=== PATIENT | male | born 1955 | race Caucasian/White ===

== ENCOUNTER 2020-11-27 22:58 | Emergency (ER) | payer OTHER ==
[2020-11-27 23:15] VITALS: BMI 28.0
[2020-11-28] MEDS ORDERED: METOCLOPRAMIDE HCL INJECTION 10 MG/2 ML VIAL IVPUSH ONE (00:02)
[2020-11-28] MEDS ORDERED: SODIUM CHLORIDE 1,000 ML IV STA (00:02)
[2020-11-28] MEDS ORDERED: ACETAMINOPHEN 1000 MG/100 ML VIAL (NON FORMULARY) IVPB ONE (00:02)
[2020-11-28] MEDS ORDERED: METOCLOPRAMIDE HCL INJECTION 10 MG/2 ML VIAL ONE (00:05)
[2020-11-28] MEDS ORDERED: ACETAMINOPHEN INJECTION 100 ML IVPB ONE (00:05)
[2020-11-28 00:30] LABS: BASO % 0.6 % (0-2.0); EOS % 0.1 % (0-4.5); HEMATOCRIT 42.4 % (35.4-49); HEMOGLOBIN 14.8 GM/dL (11.7-16.9); LYMPH % 20.5 % (8-40); MCH 33.3 pg (25.7-33.7); MEAN CELL VOLUME 95.1 fl (80-96); MEAN PLT VOLUME 9.5 fl (7.5-11.1); MONO % 8.1 % (3.8-10.2); NEUT % 70.7 % (42.8-82.8); PLATELET COUNT 140 K/MM3 (134-434); RBC 4.46 M/mm3 (4.00-5.60); RDW 12.9 % (11.9-15.9); WHITE BLOOD COUNT 3.6 K/mm3 (4.0-10.0)
[2020-11-28 00:49] LABS: INR 1.48 (0.83-1.09); PROTHROMBIN TIME (PATIENT) 17.7 SEC (9.7-13.0)
[2020-11-28 00:51] LABS: ACTIVATED PTT 41.4 SECONDS (25.2-36.5)
[2020-11-28 00:58] LABS: CHLORIDE 96 mmol/L (98-107); POTASSIUM 4.4 mmol/L (3.5-5.1); SODIUM 131 mmol/L (136-145)
[2020-11-28 01:00] LABS: CALCIUM 7.8 mg/dL (8.5-10.1)
[2020-11-28 01:01] LABS: ALBUMIN 3.8 g/dl (3.4-5.0); ANION GAP 9 MMOL/L (8-16); BLOOD UREA NITROGEN 10.3 mg/dL (7-18); CO2 26 mmol/L (21-32); GLUCOSE,RANDOM 105 mg/dL (74-106)
[2020-11-28 01:04] LABS: CREATININE 0.9 mg/dL (0.55-1.3); SGOT/AST 32 U/L (15-37); SGPT/ALT 43 U/L (13-61)
[2020-11-28 01:06] LABS: BILIRUBIN,TOTAL 0.5 mg/dL (0.2-1); TOT PROT 7.2 g/dl (6.4-8.2)
[2020-11-28 01:07] LABS: ALK PHOS 66 U/L (45-117)
[2020-11-28] MEDS ORDERED: DEXAMETHASONE SOD PHOSPHATE 10 MG/1 ML VIAL IVPUSH ONE (02:19)
[2020-11-28] MEDS ORDERED: IBUPROFEN 400 MG TABLET (FP) PO ONE (02:19)
[2020-11-28] MEDS ORDERED: MAGNESIUM SULF 50% (8.12 MEQ/2 ML-1 GM VIAL) IVPB ONE (02:19)
[2020-11-28] MEDS ORDERED: SODIUM CHLORIDE 0.9% 500 ML INFUS.BAG IV ONE (02:19)
[2020-11-28] MEDS ORDERED: IBUPROFEN 600 MG TABLET (FP) PO ONE (02:22)
[2020-11-28] MEDS ORDERED: DEXAMETHASONE SOD PHOSPHATE 4 MG/1 ML VIAL ONE (02:22)
[2020-11-28] MEDS ORDERED: MAGNESIUM SULFATE IN WATER 2 GM/50 ML IVPB IVPB ONE (02:22)
[2020-11-28] MEDS ORDERED: LACTATED RINGERS SOLUTION 1000 ML INFUS.BAG IV ONE (02:27)
[2020-11-28 03:37] VITALS: BP 120/77; PULSE 67; TEMP 99
== END 2020-11-28 03:38 | disposition home or self-care (01) ==
LOC: JER 22:58
PROC: 3E0333Z Introduction of Anti-inflammatory into Peripheral Vein, Percutaneous Approach (ICD-10-PCS; principal; 2020-11-27)
PROC: 3E033GC Introduction of Other Therapeutic Substance into Peripheral Vein, Percutaneous Approach (ICD-10-PCS; 2020-11-27)
PROC: 3E033GC Introduction of Other Therapeutic Substance into Peripheral Vein, Percutaneous Approach (ICD-10-PCS; 2020-11-27)
PROC: 3E033GC Introduction of Other Therapeutic Substance into Peripheral Vein, Percutaneous Approach (ICD-10-PCS; 2020-11-27)
PROC: 3E0337Z Introduction of Electrolytic and Water Balance Substance into Peripheral Vein, Percutaneous Approach (ICD-10-PCS; 2020-11-27)
DX: U07.1 COVID-19 (principal); R11.2 Nausea with vomiting, unspecified; R51.9 Headache, unspecified
CPT/HCPCS: 36415; 70450-TC; 71045-TC-FY; 80053; 82550; 84484; 85025; 85610; 85730; 93005; 93010; 99285-25; C9803; J0131; J1100; U0003

== ENCOUNTER 2020-11-30 08:43 | Inpatient (IN) | payer OTHER ==
[2020-11-30 08:52] VITALS: BMI 24.3
[2020-11-30] MEDS ORDERED: ACETAMINOPHEN 325 MG TABLET (FP) PO ONE (09:00)
[2020-11-30] MEDS ORDERED: ACETAMINOPHEN 325 MG TABLET (FP) ONE ×2 (09:00→22:29)
[2020-11-30 10:49] LABS: BASO % 0.4 % (0-2.0); HEMATOCRIT 45.1 % (35.4-49); HEMOGLOBIN 15.7 GM/dL (11.7-16.9); LYMPH % 12.4 % (8-40); MCH 33.2 pg (25.7-33.7); MCHC 34.8 g/dl (32.0-35.9); MEAN CELL VOLUME 95.3 fl (80-96); MEAN PLT VOLUME 9.4 fl (7.5-11.1); MONO % 4.9 % (3.8-10.2); NEUT % 82.3 % (42.8-82.8); PLATELET COUNT 185 K/MM3 (134-434); RBC 4.73 M/mm3 (4.00-5.60); RDW 12.9 % (11.9-15.9); WHITE BLOOD COUNT 4.7 K/mm3 (4.0-10.0)
[2020-11-30] MEDS ORDERED: SODIUM CHLORIDE 1,000 ML IV STA (10:49)
[2020-11-30 11:11] LABS: CHLORIDE 94 mmol/L (98-107); POTASSIUM 4.9 mmol/L (3.5-5.1); SODIUM 128 mmol/L (136-145)
[2020-11-30 11:12] LABS: CALCIUM 8.2 mg/dL (8.5-10.1)
[2020-11-30 11:13] LABS: ALBUMIN 3.4 g/dl (3.4-5.0); ANION GAP 6 MMOL/L (8-16); BLOOD UREA NITROGEN 10.9 mg/dL (7-18); CO2 27 mmol/L (21-32); GLUCOSE,RANDOM 98 mg/dL (74-106)
[2020-11-30 11:16] LABS: SGOT/AST 45 U/L (15-37); SGPT/ALT 50 U/L (13-61)
[2020-11-30 11:17] LABS: BILIRUBIN,TOTAL 0.4 mg/dL (0.2-1)
[2020-11-30 11:18] LABS: TOT PROT 7.2 g/dl (6.4-8.2)
[2020-11-30 11:19] LABS: ALK PHOS 71 U/L (45-117)
[2020-11-30] MEDS ORDERED: SODIUM CHLORIDE 0.9% 500 ML INFUS.BAG IV ONE (13:07)
[2020-11-30 14:09] LABS: EPI CELLS 2 /uL (0-25.1); HYALINE CASTS 0 /uL (0-3.1); PH,URINE 6.5 (5.0-8.0); URINE APPEARANCE CLEAR; URINE BACTERIA 21 /uL (0-1359); URINE BILIRUBIN NEGATIVE (NEGATIVE); URINE COLOR YELLOW; URINE GLUCOSE (UA) NEGATIVE (NEGATIVE); URINE KETONE NEGATIVE (NEGATIVE); URINE LEUK ESTERASE NEGATIVE (NEGATIVE); URINE NITRITE NEGATIVE (NEGATIVE); URINE PROTEIN 1+ (NEGATIVE); URINE RBC 2 /uL (0-23.9); URINE UROBILINOGEN 0.2 mg/dL (0.2-1.0); URINE WBC 3 /uL (0-25.8)
[2020-11-30 14:15] LABS: INR 1.39 (0.83-1.09); PROTHROMBIN TIME (PATIENT) 16.9 SEC (9.7-13.0)
[2020-11-30 14:17] LABS: ACTIVATED PTT 37.3 SECONDS (25.2-36.5)
[2020-11-30 14:25] LABS: VENOUS BASE EXCESS -1.8 mmol/L (-2-2); VENOUS O2 SATURATION 35.8 % (70-80); VENOUS PCO2 43.7 mmHg (38-52); VENOUS PH 7.355 (7.310-7.410)
[2020-11-30 14:27] LABS: BILIRUBIN,DIRECT 0.2 mg/dL (0.0-0.2)
[2020-11-30 14:32] LABS: LDH 399 U/L (87-246)
[2020-11-30] MEDS ORDERED: SODIUM CHLORIDE 1,000 ML IV SCH (16:45)
[2020-11-30] MEDS ORDERED: ENOXAPARIN NA (PORCINE) 40 MG/0.4 ML DISP.SYRIN SQ SCH (17:00)
[2020-11-30] MEDS ORDERED: ACETAMINOPHEN 1000 MG/100 ML VIAL (NON FORMULARY) IVPB PRN (17:36)
[2020-11-30] MEDS ORDERED: DEXAMETHASONE SOD PHOSPHATE 4 MG/1 ML VIAL ONE (18:12)
[2020-11-30] MEDS ORDERED: ZINC SULFATE 220 MG CAPSULE (FP) ONE (18:12)
[2020-11-30 18:17] LABS: SODIUM 132 mmol/L (136-145)
[2020-11-30] MEDS: ZINC SULFATE 220 MG CAPSULE (FP) PO SCH (18:24)
[2020-11-30] MEDS: DEXAMETHASONE SOD PHOSPHATE 4 MG/1 ML VIAL IVPUSH SCH (18:24)
[2020-11-30] MEDS: CHOLECALCIFEROL (VIT D3) 400 UNIT (10 MCG) TABLET PO SCH (18:24)
[2020-11-30] MEDS ORDERED: APIXABAN 5 MG TABLET ONE (22:19)
[2020-11-30] MEDS ORDERED: ASCORBIC ACID 500 MG TABLET (FP) ONE (22:19)
[2020-11-30] MEDS: APIXABAN 5 MG TABLET PO SCH (22:24)
[2020-11-30] MEDS: ASCORBIC ACID 500 MG TABLET (FP) PO SCH (22:24)
[2020-11-30] MEDS ORDERED: ACETAMINOPHEN INJECTION 100 ML IVPB ONE (22:41)
[2020-12-01] MEDS ORDERED: DEXAMETHASONE SOD PHOSPHATE 4 MG/1 ML VIAL ONE (02:21)
[2020-12-01] MEDS: DEXAMETHASONE SOD PHOSPHATE 4 MG/1 ML VIAL IVPUSH SCH ×3 (02:30→17:37)
[2020-12-01 07:10] LABS: HEMATOCRIT 46.3 % (35.4-49); MCH 33.3 pg (25.7-33.7); MCHC 34.6 g/dl (32.0-35.9); MEAN CELL VOLUME 96.5 fl (80-96); MEAN PLT VOLUME 9.2 fl (7.5-11.1); PLATELET COUNT 192 K/MM3 (134-434); RDW 12.9 % (11.9-15.9); WHITE BLOOD COUNT 3.7 K/mm3 (4.0-10.0)
[2020-12-01 07:19] LABS: POTASSIUM 4.5 mmol/L (3.5-5.1)
[2020-12-01 07:27] LABS: BLOOD UREA NITROGEN 13.9 mg/dL (7-18); CALCIUM 7.7 mg/dL (8.5-10.1); MAGNESIUM 2.4 mg/dL (1.8-2.4)
[2020-12-01 07:30] LABS: CREATININE 0.9 mg/dL (0.55-1.3)
[2020-12-01 07:31] LABS: BILIRUBIN,TOTAL 0.5 mg/dL (0.2-1); TOT PROT 6.7 g/dl (6.4-8.2)
[2020-12-01] MEDS ORDERED: ASCORBIC ACID 500 MG TABLET (FP) ONE (09:03)
[2020-12-01] MEDS ORDERED: DEXAMETHASONE SOD PHOSPHATE 10 MG/1 ML VIAL ONE (09:04)
[2020-12-01] MEDS ORDERED: ZINC SULFATE 220 MG CAPSULE (FP) ONE (09:04)
[2020-12-01] MEDS ORDERED: APIXABAN 5 MG TABLET ONE (09:04)
[2020-12-01] MEDS: ZINC SULFATE 220 MG CAPSULE (FP) PO SCH (10:20)
[2020-12-01] MEDS: APIXABAN 5 MG TABLET PO SCH ×2 (10:20→21:23)
[2020-12-01] MEDS: ASCORBIC ACID 500 MG TABLET (FP) PO SCH ×2 (10:21→21:23)
[2020-12-01] MEDS: CHOLECALCIFEROL (VIT D3) 400 UNIT (10 MCG) TABLET PO SCH (10:21)
[2020-12-01] MEDS ORDERED: FLU VACCINE (FLULAVAL) PF 60 MCG/0.5 ML SYRINGE 2020-2021 IM ONE (16:27)
[2020-12-02] MEDS: guaiFENesin 200 MG/10 ML 10 ML UNIT-DOSE CUPS PO PRN ×2 (00:58→10:20)
[2020-12-02] MEDS: DEXAMETHASONE SOD PHOSPHATE 4 MG/1 ML VIAL IVPUSH SCH (00:59)
[2020-12-02] MEDS: MELATONIN 5 MG TABLETS PO PRN (02:16)
[2020-12-02 09:04] LABS: HEMATOCRIT 41.7 % (35.4-49); HEMOGLOBIN 14.7 GM/dL (11.7-16.9); MCH 33.5 pg (25.7-33.7); MCHC 35.3 g/dl (32.0-35.9); MEAN CELL VOLUME 94.9 fl (80-96); MEAN PLT VOLUME 8.6 fl (7.5-11.1); PLATELET COUNT 272 K/MM3 (134-434); RDW 13.1 % (11.9-15.9); WHITE BLOOD COUNT 10.7 K/mm3 (4.0-10.0)
[2020-12-02 09:29] LABS: POTASSIUM 4.4 mmol/L (3.5-5.1)
[2020-12-02 10:00] LABS: BLOOD UREA NITROGEN 19.6 mg/dL (7-18)
[2020-12-02] MEDS ORDERED: DEXAMETHASONE 4 MG TABLET (FP) PO SCH (10:00)
[2020-12-02 10:01] LABS: CALCIUM 8.1 mg/dL (8.5-10.1)
[2020-12-02 10:02] LABS: CREATININE 0.9 mg/dL (0.55-1.3)
[2020-12-02] MEDS: APIXABAN 5 MG TABLET PO SCH ×2 (10:20→22:03)
[2020-12-02] MEDS: ZINC SULFATE 220 MG CAPSULE (FP) PO SCH (10:20)
[2020-12-02] MEDS: ASCORBIC ACID 500 MG TABLET (FP) PO SCH ×2 (10:20→22:03)
[2020-12-02] MEDS: CHOLECALCIFEROL (VIT D3) 400 UNIT (10 MCG) TABLET PO SCH (10:21)
[2020-12-03 00:48] LABS: ARTERIAL BLD GAS O2 SATURATION 99.8 mmHg (95-98); ARTERIAL BLOOD GAS BASE EXCESS -0.6 mmol/L (-2-2); ARTERIAL BLOOD GAS PO2 395.4 mmHg (80-100); ARTERIAL BLOOD GAS pH 7.471 (7.350-7.450)
[2020-12-03 00:50] LABS: ALLENS TEST POSITIVE
[2020-12-03 01:23] LABS: INR 1.28 (0.83-1.09); PROTHROMBIN TIME (PATIENT) 15.6 SEC (9.7-13.0)
[2020-12-03 01:25] LABS: ACTIVATED PTT 30.7 SECONDS (25.2-36.5)
[2020-12-03 01:31] LABS: CHLORIDE 103 mmol/L (98-107); POTASSIUM 4.6 mmol/L (3.5-5.1); SODIUM 135 mmol/L (136-145)
[2020-12-03 01:33] LABS: ANION GAP 9 MMOL/L (8-16); BLOOD UREA NITROGEN 20.3 mg/dL (7-18); CALCIUM 7.5 mg/dL (8.5-10.1); CO2 23 mmol/L (21-32); GLUCOSE,RANDOM 145 mg/dL (74-106)
[2020-12-03 01:36] LABS: CREATININE 0.8 mg/dL (0.55-1.3)
[2020-12-03] MEDS: DEXAMETHASONE 4 MG TABLET (FP) PO SCH (09:35)
[2020-12-03] MEDS: ASCORBIC ACID 500 MG TABLET (FP) PO SCH (09:36)
[2020-12-03] MEDS: APIXABAN 5 MG TABLET PO SCH ×2 (09:36→23:59)
[2020-12-03] MEDS: guaiFENesin 200 MG/10 ML 10 ML UNIT-DOSE CUPS PO PRN (09:36)
[2020-12-03] MEDS: ZINC SULFATE 220 MG CAPSULE (FP) PO SCH (09:36)
[2020-12-03] MEDS: CHOLECALCIFEROL (VIT D3) 400 UNIT (10 MCG) TABLET PO SCH (09:38)
[2020-12-03 10:05] LABS: BASO % 0.2 % (0-2.0); HEMATOCRIT 41.3 % (35.4-49); HEMOGLOBIN 14.4 GM/dL (11.7-16.9); LYMPH % 12.1 % (8-40); MCH 33.3 pg (25.7-33.7); MCHC 34.8 g/dl (32.0-35.9); MEAN CELL VOLUME 95.6 fl (80-96); MEAN PLT VOLUME 8.7 fl (7.5-11.1); MONO % 8.3 % (3.8-10.2); NEUT % 79.4 % (42.8-82.8); PLATELET COUNT 300 K/MM3 (134-434); RBC 4.31 M/mm3 (4.00-5.60); RDW 12.9 % (11.9-15.9); WHITE BLOOD COUNT 9.3 K/mm3 (4.0-10.0)
[2020-12-03 10:29] LABS: CHLORIDE 102 mmol/L (98-107); POTASSIUM 4.6 mmol/L (3.5-5.1); SODIUM 136 mmol/L (136-145)
[2020-12-03 10:38] LABS: CALCIUM 7.8 mg/dL (8.5-10.1)
[2020-12-03 10:39] LABS: ALBUMIN 2.9 g/dl (3.4-5.0); ANION GAP 12 MMOL/L (8-16); CO2 22 mmol/L (21-32); GLUCOSE,RANDOM 123 mg/dL (74-106)
[2020-12-03 10:42] LABS: CREATININE 0.9 mg/dL (0.55-1.3); SGOT/AST 107 U/L (15-37); SGPT/ALT 158 U/L (13-61)
[2020-12-03 10:44] LABS: TOT PROT 6.6 g/dl (6.4-8.2)
[2020-12-03 10:45] LABS: ALK PHOS 76 U/L (45-117)
[2020-12-03 10:51] LABS: BILIRUBIN,TOTAL 1.3 mg/dL (0.2-1)
[2020-12-03 12:21] LABS: ERYTHROCYTE SEDIMENTATION RATE 23 mm/hr (0-20)
[2020-12-03] MEDS ORDERED: REMDESIVIR 200 MG in SODIUM CHLORIDE 210 ML IVPB ONE (17:00)
[2020-12-04] MEDS: MELATONIN 5 MG TABLETS PO PRN
[2020-12-04] MEDS ORDERED: PT OWN MED DRAWER 7, Y5N ONE (09:10)
[2020-12-04] MEDS: APIXABAN 5 MG TABLET PO SCH ×2 (09:35→21:12)
[2020-12-04] MEDS: CHOLECALCIFEROL (VIT D3) 400 UNIT (10 MCG) TABLET PO SCH (09:35)
[2020-12-04] MEDS: ZINC SULFATE 220 MG CAPSULE (FP) PO SCH (09:35)
[2020-12-04] MEDS: guaiFENesin 200 MG/10 ML 10 ML UNIT-DOSE CUPS PO PRN ×2 (09:35→21:16)
[2020-12-04] MEDS: DEXAMETHASONE 4 MG TABLET (FP) PO SCH (09:35)
[2020-12-04] MEDS: FAMOTIDINE 20 MG TABLET PO SCH ×3 (09:36→21:12)
[2020-12-04] MEDS: ASCORBIC ACID 500 MG TABLET (FP) PO SCH ×3 (09:36→21:12)
[2020-12-04] MEDS ORDERED: CODEINE SO4 30 MG TABLET PO PRN (09:38)
[2020-12-04 09:58] LABS: BASO % 0.1 % (0-2.0); HEMATOCRIT 41.5 % (35.4-49); HEMOGLOBIN 14.5 GM/dL (11.7-16.9); LYMPH % 16.2 % (8-40); MCHC 34.8 g/dl (32.0-35.9); MEAN CELL VOLUME 94.7 fl (80-96); MEAN PLT VOLUME 8.5 fl (7.5-11.1); MONO % 10.5 % (3.8-10.2); NEUT % 73.2 % (42.8-82.8); PLATELET COUNT 341 K/MM3 (134-434); RBC 4.38 M/mm3 (4.00-5.60); WHITE BLOOD COUNT 9.1 K/mm3 (4.0-10.0)
[2020-12-04 10:19] LABS: POTASSIUM 4.8 mmol/L (3.5-5.1)
[2020-12-04 10:24] LABS: ALBUMIN 2.8 g/dl (3.4-5.0)
[2020-12-04 10:26] LABS: BLOOD UREA NITROGEN 18.7 mg/dL (7-18); MAGNESIUM 2.4 mg/dL (1.8-2.4)
[2020-12-04 10:27] LABS: CREATININE 0.7 mg/dL (0.55-1.3)
[2020-12-04 10:28] LABS: PHOSPHOROUS 3.3 mg/dL (2.5-4.9)
[2020-12-04 10:29] LABS: BILIRUBIN,TOTAL 0.5 mg/dL (0.2-1); TOT PROT 6.4 g/dl (6.4-8.2)
[2020-12-04 10:49] LABS: ERYTHROCYTE SEDIMENTATION RATE 23 mm/hr (0-20)
[2020-12-04] MEDS: REMDESIVIR 100 MG in SODIUM CHLORIDE 230 ML IVPB SCH (18:08)
[2020-12-05 09:09] LABS: BASO % 0.2 % (0-2.0); EOS % 0.2 % (0-4.5); HEMATOCRIT 42.3 % (35.4-49); HEMOGLOBIN 15.1 GM/dL (11.7-16.9); LYMPH % 18.7 % (8-40); MCH 34.2 pg (25.7-33.7); MCHC 35.8 g/dl (32.0-35.9); MEAN CELL VOLUME 95.6 fl (80-96); MEAN PLT VOLUME 8.3 fl (7.5-11.1); MONO % 9.1 % (3.8-10.2); NEUT % 71.8 % (42.8-82.8); PLATELET COUNT 356 K/MM3 (134-434); RBC 4.43 M/mm3 (4.00-5.60); WHITE BLOOD COUNT 9.6 K/mm3 (4.0-10.0)
[2020-12-05 09:20] LABS: POTASSIUM 4.9 mmol/L (3.5-5.1)
[2020-12-05 09:24] LABS: CALCIUM 8.5 mg/dL (8.5-10.1)
[2020-12-05 09:25] LABS: BLOOD UREA NITROGEN 18.4 mg/dL (7-18); MAGNESIUM 2.3 mg/dL (1.8-2.4)
[2020-12-05 09:27] LABS: CREATININE 0.8 mg/dL (0.55-1.3); PHOSPHOROUS 3.5 mg/dL (2.5-4.9)
[2020-12-05 09:29] LABS: BILIRUBIN,TOTAL 0.8 mg/dL (0.2-1); TOT PROT 6.9 g/dl (6.4-8.2)
[2020-12-05] MEDS: ZINC SULFATE 220 MG CAPSULE (FP) PO SCH (11:33)
[2020-12-05] MEDS: FAMOTIDINE 20 MG TABLET PO SCH ×2 (11:33→21:01)
[2020-12-05] MEDS: CHOLECALCIFEROL (VIT D3) 400 UNIT (10 MCG) TABLET PO SCH (11:33)
[2020-12-05] MEDS: DEXAMETHASONE 4 MG TABLET (FP) PO SCH (11:33)
[2020-12-05] MEDS: APIXABAN 5 MG TABLET PO SCH ×2 (11:33→21:01)
[2020-12-05] MEDS: ASCORBIC ACID 500 MG TABLET (FP) PO SCH ×2 (11:33→21:00)
[2020-12-05 11:47] LABS: ANISOCYTOSIS 0; HELMET CELLS 0; HOWELL-JOLLY BODIES 0; MACROCYTOSIS 0; OVALOCYTE 0; PLATELET ESTIMATE NORMAL; ROULEAU 0; SICKELED CELLS 0; TARGET CELLS 0; TEAR DROP CELLS 0; TOXIC GRANULATION 0
[2020-12-05] MEDS: ACETAMINOPHEN 500 MG TABLET (FP) PO PRN ×2 (11:55→22:37)
[2020-12-05 12:06] LABS: ERYTHROCYTE SEDIMENTATION RATE 23 mm/hr (0-20)
[2020-12-05] MEDS: REMDESIVIR 100 MG in SODIUM CHLORIDE 230 ML IVPB SCH (18:23)
[2020-12-05] MEDS: guaiFENesin 200 MG/10 ML 10 ML UNIT-DOSE CUPS PO PRN (21:42)
[2020-12-05] MEDS: MELATONIN 5 MG TABLETS PO PRN (22:37)
[2020-12-06 08:42] LABS: BASO % 0.3 % (0-2.0); EOS % 0.5 % (0-4.5); HEMATOCRIT 39.6 % (35.4-49); LYMPH % 18.2 % (8-40); MCH 33.4 pg (25.7-33.7); MCHC 35.4 g/dl (32.0-35.9); MEAN CELL VOLUME 94.4 fl (80-96); MEAN PLT VOLUME 8.3 fl (7.5-11.1); MONO % 8.3 % (3.8-10.2); NEUT % 72.7 % (42.8-82.8); PLATELET COUNT 424 K/MM3 (134-434); RBC 4.19 M/mm3 (4.00-5.60); RDW 12.7 % (11.9-15.9); WHITE BLOOD COUNT 9.7 K/mm3 (4.0-10.0)
[2020-12-06 09:03] LABS: POTASSIUM 4.6 mmol/L (3.5-5.1)
[2020-12-06 09:09] LABS: ALBUMIN 2.7 g/dl (3.4-5.0)
[2020-12-06 09:11] LABS: BLOOD UREA NITROGEN 20.6 mg/dL (7-18); CALCIUM 8.2 mg/dL (8.5-10.1); MAGNESIUM 2.2 mg/dL (1.8-2.4)
[2020-12-06 09:14] LABS: CREATININE 0.8 mg/dL (0.55-1.3); PHOSPHOROUS 3.7 mg/dL (2.5-4.9)
[2020-12-06 09:15] LABS: BILIRUBIN,TOTAL 0.4 mg/dL (0.2-1); TOT PROT 6.2 g/dl (6.4-8.2)
[2020-12-06] MEDS ORDERED: SODIUM CHLORIDE 500 ML IV STA (09:56)
[2020-12-06] MEDS ORDERED: DOCUSATE SODIUM 100 MG CAPSULE (FP) PO PRN (10:00)
[2020-12-06] MEDS: APIXABAN 5 MG TABLET PO SCH ×2 (10:30→22:10)
[2020-12-06] MEDS: DEXAMETHASONE 4 MG TABLET (FP) PO SCH (10:30)
[2020-12-06] MEDS: ASCORBIC ACID 500 MG TABLET (FP) PO SCH ×2 (10:30→22:10)
[2020-12-06] MEDS: guaiFENesin 200 MG/10 ML 10 ML UNIT-DOSE CUPS PO PRN (10:30)
[2020-12-06] MEDS: FAMOTIDINE 20 MG TABLET PO SCH ×2 (10:30→22:10)
[2020-12-06] MEDS: CHOLECALCIFEROL (VIT D3) 400 UNIT (10 MCG) TABLET PO SCH (10:31)
[2020-12-06] MEDS: ZINC SULFATE 220 MG CAPSULE (FP) PO SCH (10:35)
[2020-12-06 11:11] LABS: ERYTHROCYTE SEDIMENTATION RATE 17 mm/hr (0-20)
[2020-12-06 11:43] LABS: ANISOCYTOSIS 2+; MACROCYTOSIS 0; PLATELET ESTIMATE NORMAL
[2020-12-06] MEDS: REMDESIVIR 100 MG in SODIUM CHLORIDE 230 ML IVPB SCH (17:21)
[2020-12-06] MEDS: MELATONIN 5 MG TABLETS PO PRN (22:10)
[2020-12-07 10:11] LABS: BASO % 0.1 % (0-2.0); EOS % 0.3 % (0-4.5); HEMATOCRIT 44.4 % (35.4-49); HEMOGLOBIN 15.6 GM/dL (11.7-16.9); LYMPH % 14.6 % (8-40); MCH 33.3 pg (25.7-33.7); MCHC 35.2 g/dl (32.0-35.9); MEAN CELL VOLUME 94.5 fl (80-96); MEAN PLT VOLUME 8.4 fl (7.5-11.1); MONO % 7.7 % (3.8-10.2); NEUT % 77.3 % (42.8-82.8); PLATELET COUNT 457 K/MM3 (134-434); RDW 12.9 % (11.9-15.9); WHITE BLOOD COUNT 12.5 K/mm3 (4.0-10.0)
[2020-12-07 10:46] LABS: CHLORIDE 94 mmol/L (98-107); POTASSIUM 4.7 mmol/L (3.5-5.1); SODIUM 130 mmol/L (136-145)
[2020-12-07 10:48] LABS: CALCIUM 8.7 mg/dL (8.5-10.1)
[2020-12-07 10:49] LABS: ALBUMIN 3.2 g/dl (3.4-5.0); ANION GAP 4 MMOL/L (8-16); CO2 33 mmol/L (21-32); GLUCOSE,RANDOM 128 mg/dL (74-106); MAGNESIUM 2.3 mg/dL (1.8-2.4)
[2020-12-07 10:52] LABS: CREATININE 0.8 mg/dL (0.55-1.3); PHOSPHOROUS 4.1 mg/dL (2.5-4.9); SGOT/AST 22 U/L (15-37); SGPT/ALT 128 U/L (13-61)
[2020-12-07 10:55] LABS: ALK PHOS 92 U/L (45-117); BILIRUBIN,TOTAL 0.4 mg/dL (0.2-1)
[2020-12-07 10:56] LABS: LDH 307 U/L (87-246)
[2020-12-07] MEDS ORDERED: SODIUM CHLORIDE 500 ML IV STA (10:57)
[2020-12-07] MEDS: guaiFENesin 200 MG/10 ML 10 ML UNIT-DOSE CUPS PO PRN (11:53)
[2020-12-07] MEDS: DEXAMETHASONE 4 MG TABLET (FP) PO SCH (11:53)
[2020-12-07] MEDS: APIXABAN 5 MG TABLET PO SCH ×2 (11:54→21:41)
[2020-12-07] MEDS: FAMOTIDINE 20 MG TABLET PO SCH ×2 (11:54→21:41)
[2020-12-07] MEDS: CHOLECALCIFEROL (VIT D3) 400 UNIT (10 MCG) TABLET PO SCH (11:54)
[2020-12-07] MEDS: ZINC SULFATE 220 MG CAPSULE (FP) PO SCH (11:54)
[2020-12-07] MEDS: ASCORBIC ACID 500 MG TABLET (FP) PO SCH ×2 (11:54→21:41)
[2020-12-07 12:30] LABS: ERYTHROCYTE SEDIMENTATION RATE 13 mm/hr (0-20)
[2020-12-07 14:33] LABS: ANISOCYTOSIS 1+; MACROCYTOSIS 1+; PLATELET ESTIMATE NORMAL
[2020-12-07] MEDS: REMDESIVIR 100 MG in SODIUM CHLORIDE 230 ML IVPB SCH ×2 (14:39→17:10)
[2020-12-08 04:16] VITALS: BP 126/82; PULSE 72; TEMP 97.7
== END 2020-12-07 21:57 | disposition home or self-care (01) | DRG 137 ==
LOC: JER 08:43 → JERBED 15:26 → J5S 12-01 13:37
PROVIDERS: ADMIT Internal Medicine
PROC: 8E0ZXY6 Isolation (ICD-10-PCS; 2020-11-30)
PROC: XW033E5 Introduction of Remdesivir Anti-infective into Peripheral Vein, Percutaneous Approach, New Technology Group 5 (ICD-10-PCS; principal; 2020-12-03)
PROC: XW13325 Transfusion of Convalescent Plasma (Nonautologous) into Peripheral Vein, Percutaneous Approach, New Technology Group 5 (ICD-10-PCS; 2020-12-03)
DX: U07.1 COVID-19 (principal); J12.82 Pneumonia due to coronavirus disease 2019; I45.10 Unspecified right bundle-branch block; I48.91 Unspecified atrial fibrillation; E86.0 Dehydration; E87.1 Hypo-osmolality and hyponatremia; J96.01 Acute respiratory failure with hypoxia; E78.5 Hyperlipidemia, unspecified; I10 Essential (primary) hypertension; R73.9 Hyperglycemia, unspecified; T38.0X5A Adverse effect of glucocorticoids and synthetic analogues, initial encounter
CPT/HCPCS: 36415; 36430; 36600; 71045-TC-FY; 71046-TC-FY; 80048; 80053; 81003; 82248; 82550; 82553; 82728; 82803; 82962; 83605; 83615; 83735; 83930; 83935; 84100; 84295; 84484; 85025; 85027; 85379; 85610; 85651; 85730; 86140; 86850; 86900; 86901; 87040; 87086; 87426; 87804; 93005; 93010; 93970-TC; 94761; 97116-GP; 97161-GP; 99285-25; C9399; P9017

== ENCOUNTER 2024-12-09 04:32 | Day surgery (SDC) | payer OTHER ==
[2024-12-06 11:14] VITALS: BMI 27.6
[2024-12-09 13:47] VITALS: TEMP 98.1
[2024-12-09 13:50] VITALS: BP 127/91; PULSE 65; RESP 16
== END 2024-12-09 11:10 | disposition home or self-care (01) ==
LOC: JASU-ENDO 04:32
PROVIDERS: ATTEND Student in an Organized Health Care Education/Training Program
PROC: 0DB68ZX Excision of Stomach, Via Natural or Artificial Opening Endoscopic, Diagnostic (ICD-10-PCS; 2024-12-09)
PROC: 0DB78ZX Excision of Stomach, Pylorus, Via Natural or Artificial Opening Endoscopic, Diagnostic (ICD-10-PCS; 2024-12-09)
PROC: 0DJD8ZZ Inspection of Lower Intestinal Tract, Via Natural or Artificial Opening Endoscopic (ICD-10-PCS; principal; 2024-12-09 09:30)
DX: K29.50 Unspecified chronic gastritis without bleeding (principal); K64.8 Other hemorrhoids
CPT/HCPCS: 88305-TC; 88342-TC